=== PATIENT | male | born 1970 | race Caucasian/White ===

== ENCOUNTER 2017-12-09 13:23 | Day surgery (SDC) | payer BC ==
[2017-12-09] MEDS: SOD CHLORIDE 0.9% 1,000 ML IV (07:00)
[2017-12-09] MEDS: CEFAZOLIN 2 GM/50 ML (PMX) 50 ML IVPB (07:00)
[~2017-12-09 13:23] MED LIST: DEXAMETHASONE 4 MG/ML 1 ML INJ; ONDANSETRON 4 MG INJ; ROCURONIUM 50 MG INJ
[2017-12-09 14:23] LABS: ADD MAN DIFF? NO
[2017-12-09 14:33] LABS: WHITE BLOOD COUNT 9.4 10^3/ul (4.8-10.8)
[2017-12-09 14:33] LABS: BASOPHIL # 0.1 10^3/ul (0.0-0.1); BASOPHILS % 0.5 % (0.0-2.0); EOSINOPHILS # 0.1 10^3/ul (0.0-0.5); EOSINOPHILS % 0.8 % (0.0-7.0); HEMATOCRIT 47.2 % (42.0-52.0); HEMOGLOBIN 16.3 g/dl (14.0-18.0); LYMPHOCYTES # 2.9 10^3/ul (0.8-2.9); LYMPHOCYTES % 31.2 % (15.0-51.0); MEAN CORPUSCULAR HGB CONC 34.5 g/dl (32.0-37.0); MEAN CORPUSCULAR VOLUME 89.9 fl (82.0-101.0); MEAN PLATELET VOLUME 10.4 fl (7.4-10.4); MONOCYTE # 0.7 10^3/ul (0.3-0.9); MONOCYTES % 7.6 % (0.0-11.0); NEUTROPHIL # 5.6 10^3/ul (1.6-7.5); NEUTROPHILS % 59.6 % (39.0-77.0); PLATELET COUNT 247 10^3/UL (140-415); RED BLOOD COUNT 5.25 10^6/ul (4.70-6.10); RED CELL DISTRIBUTION WIDTH 11.8 % (11.5-14.5)
[2017-12-09 14:45] LABS: PROTIME 12.2 Sec (11.9-14.9)
[2017-12-09 14:46] LABS: PARTIAL THROMBOPLASTIN TIME 28.5 Sec (25.0-35.0)
[2017-12-09 14:48] LABS: ALANINE AMINOTRANSFERASE 40 IU/L (13-69); ALBUMIN 5.3 g/dl (3.3-4.9); ALBUMIN/GLOBULIN RATIO 1.47; ALKALINE PHOSPHATASE 58 IU/L (42-121); ANION GAP 20 (8-16); ASPARTATE AMINO TRANSFERASE 40 IU/L (15-46); BILIRUBIN,INDIRECT 1.1 mg/dl (0-1.1); BILIRUBIN,TOTAL 1.1 mg/dl (0.2-1.3); CARBON DIOXIDE 27 mmol/L (21-31); CHLORIDE 105 mmol/L (97-110); GLUCOSE 96 mg/dl (70-220); TOTAL PROTEIN 8.9 g/dl (6.1-8.1)
[2017-12-09 14:51] LABS: BLOOD UREA NITROGEN 17 mg/dl (7-20); CREATININE 0.99 mg/dl (0.61-1.24); POTASSIUM 4.5 mmol/L (3.5-5.1); SODIUM 147 mmol/L (135-144)
[2017-12-09] MEDS ORDERED: LABETALOL HCL 20MG INJ IV (18:00)
[2017-12-09] MEDS ORDERED: EPHEDrine SULFATE 50 MG/5 ML SYG IV (18:00)
[2017-12-09] MEDS ORDERED: FENTAnyl 50 MCG/ML VIAL IV ×3 (18:00)
[2017-12-09] MEDS ORDERED: ONDANSETRON 4 MG INJ IV (18:00)
[2017-12-09] MEDS ORDERED: hydrALAzine 20 MG INJ IV (18:00)
[2017-12-09] MEDS ORDERED: DIPHENHYDRAMINE 50 MG INJ IV (18:00)
[2017-12-09] MEDS ORDERED: MIDAZOLAM 1 MG/ML 2 ML INJ IV (18:00)
[2017-12-09] MEDS ORDERED: ALBUTEROL 0.083% (NEB) 2.5 MG/3 ML AMP HHN (18:00)
[2017-12-09] MEDS ORDERED: OXYCODONE/ACETAMINOPHEN (5/325) TAB PO (18:00)
[2017-12-09] MEDS ORDERED: MEPERIDINE 25 MG INJ IV (18:00)
[2017-12-09] MEDS ORDERED: HYDROmorphONE 1 MG/5 ML IV SYRINGE IV ×3 (18:00)
[2017-12-09] MEDS ORDERED: PROPOFOL 100 ML (18:07)
[2017-12-09] MEDS ORDERED: FENTAnyl 50 MCG/ML VIAL ×2 (18:08)
[2017-12-09] MEDS ORDERED: SUGAMMADEX SODIUM 200 MG/2 ML VIAL IV (18:46)
[2017-12-09] MEDS ORDERED: LIDOCAINE 2% (SDV) 5 ML INJ (18:49)
[2017-12-09] MEDS ORDERED: CEFAZOLIN 1 GM INJ (18:49)
[2017-12-09] MEDS: BUPIVACAINE 0.5% (SDV) 30 ML INJ (18:58)
[2017-12-09] MEDS: OXYCODONE/ACETAMINOPHEN (5/325) TAB PO (19:35)
[2017-12-09] MEDS: HYDROCODONE/APAP (5/325) TAB PO (19:36)
== END 2017-12-09 20:05 | disposition home or self-care (01) ==
LOC: SDS 13:23
DX: D17.0 Benign lipomatous neoplasm of skin and subcutaneous tissue of head, face and neck (principal); E78.5 Hyperlipidemia, unspecified
CPT/HCPCS: 14041; 80053; 85025; 85610; 85730; 88307